=== PATIENT | male | born 1970 | race Caucasian/White ===

== ENCOUNTER 2020-02-26 21:44 | Emergency (ER) | payer MEDICARE, MEDICAID ==
[~2020-02-26] VITALS: Ht 182.9 cm; Wt 141.8 kg
[~2020-02-26 21:44] MED LIST: DOCU100C40 PO; FLUO20CA PO; HYDR1TAB69 PO; IBUP-1573 PO; LATA2.5D2 EACHEYE; MECL-159 PO; MECL-69 PO; ONDA4TAB12 PO; TRIA1CAP6 PO; WEL75T PO
[2020-02-26 22:06] LABS: BASOPHILS % (AUTO) 0.3 % (0-1); EOSINOPHILS # (AUTO) 0.1 X10'3 (0-0.9); EOSINOPHILS % (AUTO) 0.8 % (0-6); HEMATOCRIT 44.6 % (42.0-52.0); LYMPHOCYTES # (AUTO) 1.1 X10'3 (1.1-4.8); LYMPHOCYTES % (AUTO) 8.6 % (21-51); MEAN CORPUSCULAR HEMOGLOBIN 29.6 PG (27.0-31.0); MEAN CORPUSCULAR HGB CONC 33.6 g/dL (33.0-36.5); MEAN PLATELET VOLUME 7.7 FL (7.4-10.4); MONOCYTES # (AUTO) 0.5 X10'3 (0-0.9); MONOCYTES % (AUTO) 3.9 % (2-12); NEUTROPHILS # (AUTO) 10.7 X10'3 (1.8-7.7); NEUTROPHILS % (AUTO) 86.4 % (42-75); PLATELET COUNT 237 X10'3 (140-440); RED BLOOD COUNT 5.07 X10'6 (4.70-6.10); RED CELL DISTRIBUTION WIDTH 12.2 % (11.5-14.5); WHITE BLOOD COUNT 12.4 X10'3 (4.5-11.0)
[2020-02-26 22:20] LABS: ALANINE AMINOTRANSFERASE 38 U/L (12-78); ALBUMIN 3.5 G/DL (3.4-5.0); ALBUMIN/GLOBULIN RATIO 0.9 (1.1-1.5); ALKALINE PHOSPHATASE 84 IU/L (46-116); ANION GAP 12 (8-16); ASPARTATE AMINO TRANSFERASE 25 U/L (10-37); BILIRUBIN,TOTAL 0.6 MG/DL (0.1-1.0); BLOOD UREA NITROGEN 19 MG/DL (7-18); BUN/CREATININE RATIO 11.8 (5.4-32.0); CALCIUM 8.8 MG/DL (8.5-10.1); CHLORIDE 107 MMOL/L (99-107); CREATININE 1.61 MG/DL (0.60-1.10); GLUCOSE 194 MG/DL (70-104); LIPASE 121 U/L (73-393); POTASSIUM 3.3 MMOL/L (3.5-5.1); SODIUM 143 MMOL/L (135-145); TOTAL CARBON DIOXIDE 24.1 MMOL/L (24-32); TOTAL PROTEIN 7.5 G/DL (6.4-8.2); eGFR 46 ML/MIN
--- NOTE | 2020-02-26 22:25 | NUR ---
Judith Brown-Sister- . States pt. non-compliant with meds since 10/2019 when his mother . Pt has been staying with Judith who has since started him back on his meds for the past five days.
[2020-02-26] MEDS ORDERED: normal saline 1000ml 1,000 ML IV ONE (22:30)
[2020-02-26] MEDS ORDERED: ONDA8TAB13 PO (22:32)
[2020-02-26] MEDS ORDERED: normal saline 1000ML IV soln IVB ONE (22:35)
[2020-02-26] MEDS ORDERED: ondansetron/PF 4mg/2ml inj IV ONE (22:35)
[2020-02-26 23:11] VITALS: BP 101/73
[2020-02-27] MEDS ORDERED: DIPH-186 PO (00:46)
== END 2020-02-26 23:12 | disposition home or self-care (01) ==
LOC: ER 21:44
DX: E86.0 Dehydration (principal); R11.10 Vomiting, unspecified; R19.7 Diarrhea, unspecified; N17.9 Acute kidney failure, unspecified; E87.6 Hypokalemia; K21.9 Gastro-esophageal reflux disease without esophagitis; E11.9 Type 2 diabetes mellitus without complications; M19.90 Unspecified osteoarthritis, unspecified site; F32.9 Major depressive disorder, single episode, unspecified; Z79.899 Other long term (current) drug therapy
CPT/HCPCS: 36415; 80053; 82948; 83690; 85025; 96361; 96374; 99283; J2405; J7030

== ENCOUNTER 2020-02-27 00:33 | Emergency (ER) | payer MEDICARE, MEDICAID ==
[~2020-02-27] VITALS: Ht 182.9 cm; Wt 143.3 kg
[~2020-02-27 00:33] MED LIST changes: +ONDA8TAB13 PO
[2020-02-27] MEDS ORDERED: proCHLORperazine 10 MG/2 ml inj IM ONE (00:45)
[2020-02-27] MEDS ORDERED: DIPH-186 PO (00:46)
[2020-02-27 00:56] VITALS: BP 140/93
--- NOTE | 2020-02-27 00:56 | NUR ---
See assessment from previous visit
== END 2020-02-27 00:57 | disposition home or self-care (01) ==
LOC: ER 00:34
DX: R11.2 Nausea with vomiting, unspecified (principal); R19.7 Diarrhea, unspecified; K21.9 Gastro-esophageal reflux disease without esophagitis; E11.9 Type 2 diabetes mellitus without complications; M19.90 Unspecified osteoarthritis, unspecified site; F32.9 Major depressive disorder, single episode, unspecified; Z79.899 Other long term (current) drug therapy
CPT/HCPCS: 96372; 99283; J0780